=== PATIENT | male | born 1995 | race Caucasian/White ===

== ENCOUNTER 2019-01-09 21:59 | Emergency (ER) | payer BC ==
[2019-01-09 22:11] VITALS: BP 125/91; PULSE 114; TEMP 98; BMI 29.0
[2019-01-09] MEDS ORDERED: PSEUDOEPHEDRINE HCL 60 MG TABLET PO STA (22:23)
[2019-01-09] MEDS ORDERED: PSEUDOEPHEDRINE HCL 30 MG TABLET ONE (22:26)
== END 2019-01-09 22:31 | disposition home or self-care (01) ==
LOC: FER 21:59
PROC: 3E0F7GC Introduction of Other Therapeutic Substance into Respiratory Tract, Via Natural or Artificial Opening (ICD-10-PCS; principal; 2019-01-09)
DX: J06.9 Acute upper respiratory infection, unspecified (principal); J45.909 Unspecified asthma, uncomplicated; F98.8 Other specified behavioral and emotional disorders with onset usually occurring in childhood and adolescence; Z88.0 Allergy status to penicillin
CPT/HCPCS: 99281-25